=== PATIENT | male | born 1960 | race Caucasian/White ===

== ENCOUNTER 2023-07-28 07:19 | Day surgery (SDC) | payer OTHER ==
[2023-07-18 10:42] VITALS: BMI 26.6
[2023-07-28] MEDS ORDERED: PROPOFOL 80 ML ONE (07:36)
[2023-07-28 10:45] VITALS: RESP 19
[2023-07-28 10:47] VITALS: BP 122/78; PULSE 80; TEMP 98.2
== END 2023-07-28 10:40 | disposition home or self-care (01) ==
LOC: FASU-ENDO 07:19
PROVIDERS: ATTEND Internal Medicine Gastroenterology
PROC: 0DJD8ZZ Inspection of Lower Intestinal Tract, Via Natural or Artificial Opening Endoscopic (ICD-10-PCS; principal; 2023-07-28 09:21)
DX: Z12.11 Encounter for screening for malignant neoplasm of colon (principal); K64.1 Second degree hemorrhoids; K57.30 Diverticulosis of large intestine without perforation or abscess without bleeding